=== PATIENT | female | born 1990 | race Caucasian/White ===

== ENCOUNTER 2017-02-11 12:14 | Emergency (ER) | payer OTHER | END 2017-02-11 14:58 | disposition home or self-care (01) | LOC: FER 12:14 | DX: J18.9 Pneumonia, unspecified organism (principal) | CPT/HCPCS: 71020 ==

== ENCOUNTER 2017-02-15 13:56 | Emergency (ER) | payer OTHER | END 2017-02-15 17:17 | disposition home or self-care (01) | LOC: FER 13:56 | DX: S20.219A Contusion of unspecified front wall of thorax, initial encounter (principal); W10.9XXA Fall (on) (from) unspecified stairs and steps, initial encounter; Y92.009 Unspecified place in unspecified non-institutional (private) residence as the place of occurrence of the external cause | CPT/HCPCS: 71120 ==